=== PATIENT | female | born 1995 | race Caucasian/White ===

== ENCOUNTER 2021-06-13 11:59 | Emergency (ER) | payer BC, OTHER ==
[2021-06-13 12:23] VITALS: O2SAT 98
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
[2021-06-13 13:18] VITALS: BP 122/48; PULSE 60
--- NOTE | 2021-06-13 13:36 | XRAY ---
Two-view left forearm series from 06/13/2021. Comparison: None. Indication:? Fracture. Findings: AP and lateral images of the left forearm were obtained. I see no acute fracture of the left radius or ulna. The right elbow joint space and radiocarpal joint appear unremarkable. The subcutaneous fat/muscle interfaces appear unremarkable bilaterally. No radiopaque soft tissue foreign body is seen. Impression: 1. No acute fracture of the left forearm is seen.
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
== END 2021-06-13 14:03 | disposition home or self-care (01) ==
LOC: ED 11:59
DX: S00.83XA Contusion of other part of head, initial encounter (principal); S50.12XA Contusion of left forearm, initial encounter; R42 Dizziness and giddiness; Y04.2XXA Assault by strike against or bumped into by another person, initial encounter; Y92.213 High school as the place of occurrence of the external cause; Y99.0 Civilian activity done for income or pay
CPT/HCPCS: 70200; 73090; 99283